=== PATIENT | female | born 1955 ===

== ENCOUNTER 2016-11-24 21:30 | Emergency (ER) | payer OTHER ==
--- NOTE | 2016-11-24 23:58 | ED CLINICAL REPORT ---
Clinical Report - Physicians/Mid Levels Formerly [facility] [address] [place] [address] 11/24/2016 21:31 Patient: CHELLY SOTOMAYOR Time Seen: 2128. Arrived- By ambulance. Historian- patient and EMS personnel. HISTORY OF PRESENT ILLNESS The patient has recovered (improving, but still a little nauseated and shaky). Chief Complaint: NEAR-SYNCOPE. This occurred today about 2 1/2 hours ago. Event was witnessed. At time of event, she was standing and had just stood up. This did not occur when the patient was recumbent or during exertion. The patient had preceding symptoms of light-headedness and nausea. No preceding symptoms of chest pain or abdominal pain. The patient felt faint. No loss of consciousness, incontinence or apnea noted. Did not collapse or lose pulse. Had a single episode. The episode lasted minutes. No injuries noted. Currently has mild nausea (Pt states she is shaky and her muscles feel tense.). Similar symptoms previously: Once, milder. Recent medical care: Not recently seen/assessed. REVIEW OF SYSTEMS No headache, weakness, chest pain, palpitations or diarrhea. No black stools, numbness, bloody stools, fever or sore throat. No difficulty breathing, difficulty with urination, skin rash, enlarged lymph nodes or cough. No joint pain. The patient has had dizziness, moderate, crampy abdominal pain. The pain is described as located in the upper abdomen and vomiting. All systems otherwise negative, except as recorded above. PAST HISTORY Problems: Hypertension. Tetanus Status. Immunizations. LNMP - Last Normal Menstrual Period. Additional Surgeries: Cholecystectomy. Knee Surgery. Rotator Cuff Surgery. Medications: Triamterene Oral. Ranitidine HCl Oral. NexIUM Oral. Losartan Potassium Oral. Gabapentin Oral. Aspirin Oral. Allergies: No Known Drug Allergy. SOCIAL HISTORY Never smoker. No alcohol use or drug use. ADDITIONAL NOTES The nursing notes have been reviewed. PHYSICAL EXAM Vital Signs: 11/24/2016 21:32 BP: 130/87. HR: 90. RR: 20. O2 saturation: 100%. Temp: 97.6 F. Have been reviewed. Appearance: Alert. Anxious. Eyes: Pupils equal, round and reactive to light. No nystagmus. Extraocular movements normal. ENT: Normal ENT inspection. Moist mucous membranes. Neck: Normal inspection. CVS: Normal heart rate and rhythm. Heart sounds normal. Pulses normal. Respiratory: No respiratory distress. Breath sounds normal. Abdomen: Soft and nontender. Obese. Back: Normal inspection. Skin: Skin dry. Normal skin color. No rash. Normal skin turgor. Slightly cool skin. Extremities: Extremities exhibit normal ROM. No lower extremity edema. Neuro: Alert. Oriented X 3. Mood/affect normal. Speech normal. Cranial nerves normal (as tested). No motor deficit. No sensory deficit. LABS, X-RAYS, AND EKG EKG: EKG time: (2136). No acute process. No acute ischemia. Normal EKG. Normal sinus rhythm. Rate: 89. Normal P waves. Normal SAYDA. Normal QRS complex. Normal axis. Normal ST and T waves, QT and QTc. Prior EKG unavailable. The study has been interpreted contemporaneously by me. The study has been independently viewed by me. The EKG appears to be a good tracing. I agree with and confirm the computer reading of the EKG. Rhythm Strip #1: Time: (2140). Rate= 88. Normal sinus rhythm. Regular rhythm. Narrow QRS complexes. No ectopy. Conduction normal. Normal ST segments and T waves. The study was interpreted by me. Laboratory Tests: CBC w Diff: (GERRY: 11/24/2016 21:40) ( MsgRcvd 11/24/2016 21:56) Final results Test Result Flag Units (Reference) WHITE BLOOD COUNT 11.8 H K/uL (4.5-11.5) RED BLOOD COUNT 4.47 M/uL (4.00-5.20) HEMOGLOBIN 13.3 gm/dL (12.0-16.0) HEMATOCRIT 40.0 % (36.0-46.0) MEAN CELL VOLUME 90 fL (80-100) MEAN CORPUSCULAR HGB 30 pg (26-34) MEAN CORPUSCULAR HGB CONC 33 g/dL (31-37) RED CELL DISTRIBUTION WIDTH 12.8 % (11.6-14.8) PLATELET COUNT 193 K/uL (150-400) NEUTROPHIL % 76.8 H % (50-75) LYMPH % 15.2 L % (25-40) MONO % 4.5 % (3-14) EOSINOPHIL % 2.5 % (0-4) BASOPHIL % 1.0 % (0-2) CHEM 13 PANEL: (GERRY: 11/24/2016 21:40) ( MsgRcvd 11/24/2016 22:12) Final results Test Result Flag Units (Reference) GLUCOSE 150 H mg/dL (70-110) BUN 16 mg/dL (7-18) CREATININE 1.1 mg/dL (0.6-1.3) Estimated GFR 53.85 mL/min Estimated GFR- >60 mL/min Note: Persistent reduction over 3 months in eGFR<60 mL/min/1.73 m2 defines CKD. Patients with eGFR values>=60 mL/min/1.73 m2 may also have CKD if evidence ofpersistent proteinuria. Additional information may be foundat www.[email or web address].org. SODIUM 140 mmol/L (136-145) POTASSIUM 3.7 mmol/L (3.5-5.1) CHLORIDE 102 mmol/L (98-107) CARBON DIOXIDE 28 mmol/L (21-32) CALCIUM 9.2 mg/dL (8.5-10.1) TOTAL PROTEIN 7.6 g/dL (6.4-8.2) ALBUMIN 3.8 g/dL (3.3-5.0) BILIRUBIN, TOTAL 0.5 mg/dL (0.0-1.0) ALKALINE PHOSPHATASE 65 U/L (46-116) AST (SGOT) 28 U/L (15-37) ALT (SGPT) 38 U/L (12-78) MAGNESIUM 1.5 L mg/dL (1.8-2.4) CPK 101 U/L (24-260) TROPONIN I <0.05 ng/mL (0.00-1.5) TROPONIN REFERENCE RANGE:<0.1 NEGATIVE0.1-1.5 INDETERMINANT>1.5 POSITIVE . Pulse Oximetry: 11/24/2016 21:32 O2 saturation: 100%. (FIO2 - room air). Interpretation: normal. PROGRESS AND PROCEDURES Course of Care: Pt was given a liter of NS and a dose of Ativan in the ED, after which she did improve significantly. Pt was worked up for her sx, and work-up was unremarkable. No emergent condition identified. We have discussed that if further episodes occur, pt may need to speak with her PCP about wearing a Holter monitor. Patient and family counseled in person regarding the patient's stable condition, test results, diagnosis and need for follow-up. Concerns were addressed. Old medical records reviewed. Disposition: Discharged. Condition: stable and improved. CLINICAL IMPRESSION Near syncope .12 lead EKG performed. Vomiting with nausea. INSTRUCTIONS Drink plenty of fluids. Warnings: SEDATIVE MEDICATION: You were given sedative medication during your visit. Do not drive or operate dangerous machinery for 6 hours. GENERAL WARNINGS: Return or contact your physician immediately if your condition worsens or changes unexpectedly, if not improving as expected, or if other problems arise. Your Current Medications: CONTINUE TAKING THE FOLLOWING MEDICATIONS: Aspirin Oral. Gabapentin Oral. Losartan Potassium Oral. NexIUM Oral. Ranitidine HCl Oral. Triamterene Oral. Prescription Medications: Zofran (orally disintegrating tablets) 4 mg: take 1-2 orally every 6 hours as needed for nausea. Dispense fifteen (15). No refill. Substitution is permissible. Follow-up: Follow up with your doctor in three if not better. Understanding of the discharge instructions verbalized by patient and family. (Electronically signed by Stephanie Murcia MD 11/25/2016 4:25)
--- NOTE | 2016-11-24 23:58 | ED ORDER SUMMARY ---
..... Patient: CHELLY SOTOMAYOR OrderSheet [facility] VisitID: [id number] [address] [place] [address] 61y, F Registration Date/Time: 11/24/2016 ORDER SHEET Weight: 116.5 kg (stated) Allergies: No Known Drug Allergy GENERAL ORDERS: Operations Research Engineer (Continuous) (:11/24/2016 Ester OLSEN) (21:47 SBaldwin) Cardiac Panel Stat (:11/24/2016 Ester OLSEN) (Ack 21:47 SBaldsilvia) (22:00 HSoule) Pulse oximeter (:11/24/2016 Ester OLSEN) (21:47 SBaldwin) EKG - ER Stat (:11/24/2016 Ester OLSEN) (Ack 21:47 Lizzeth) (21:52 HSoule) MEDICATION ORDERS: IV FLUIDS: Zofran IV 8 mg (NOW) (21:43 11/24/2016 HSoule verbal order read back to Ester OLSEN) (21:44 HSoule) IV NS : initial bolus 1000 mL (1000 mL/hr), then none - (NOW) (:45 11/24/2016 Ester OLSEN) (Ack 21:52 HSoule) (22:00 HSoule) Ativan IV 1 mg (HIGH ALERT MEDICATION, NOW) (:11/24/2016 Ester OLSEN) (Ack 21:52 HSoule) (22:01 HSoule) ORDER SHEET NOTES: [Electronically signed by Laura Lerner R.N. (00:15 11/25/2016)] [Electronically signed by Stephanie Murcia MD (04:25 11/25/2016)] [Electronically locked/signed by Laura Lerner R.N. (00:15 11/25/2016)]
--- NOTE | 2016-11-24 23:58 | ED ORDER SUMMARY ---
..... Patient: CHELLY SOTOMAYOR OrderSheet [facility] VisitID: [id number] [address] [place] [address] 61y, F Registration Date/Time: 11/24/2016 ORDER SHEET Weight: 116.5 kg (stated) Allergies: No Known Drug Allergy GENERAL ORDERS: Alarm Installer (Continuous) (:11/24/2016 Ester OLSEN) (21:47 SBaldwin) Cardiac Panel Stat (:11/24/2016 Ester OLSEN) (Ack 21:47 SBaldsilvia) (22:00 HSoule) Pulse oximeter (:11/24/2016 Ester OLSEN) (21:47 SBaldwin) EKG - ER Stat (:11/24/2016 Ester OLSEN) (Ack 21:47 Lizzeth) (21:52 HSoule) MEDICATION ORDERS: IV FLUIDS: Zofran IV 8 mg (NOW) (21:43 11/24/2016 HSoule verbal order read back to Ester OLSEN) (21:44 HSoule) IV NS : initial bolus 1000 mL (1000 mL/hr), then none - (NOW) (:45 11/24/2016 Ester OLSEN) (Ack 21:52 HSoule) (22:00 HSoule) Ativan IV 1 mg (HIGH ALERT MEDICATION, NOW) (:11/24/2016 Esetr OLSEN) (Ack 21:52 HSoule) (22:01 HSoule) ORDER SHEET NOTES: [Electronically signed by Laura Lerner R.N. (00:15 11/25/2016)] [Electronically signed by Stephanie Murcia MD (04:25 11/25/2016)] [Electronically locked/signed by Laura Lerner R.N. (00:15 11/25/2016)]
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
--- NOTE | 2016-11-25 04:25 | ED MED RECONCILIATION SUMMARY ---
Patient: CHELLY SOTOMAYOR Medication Reconciliation Report [facility] VisitID: [id number] [address] [place] [address] 61y, F Registration Date/Time: 11/24/2016 Weight: 116.5 kg Height/Length: 62 in. BMI: 47.0 ALLERGIES: No Known Drug Allergy The patient's Home Medications are listed below: CONTINUE TAKING THE FOLLOWING MEDICATIONS: Aspirin Oral Gabapentin Oral Losartan Potassium Oral NexIUM Oral Ranitidine HCl Oral Triamterene Oral The source(s) of the original Home Medication information: Not obtained. The following Medications were given to the patient in the Emergency Department: Zofran [IVP] IVP 8 mg, administered: 11/24/2016 9:44:00 PM IV NS IV Fluids bolus 0, then 1000 mL/hr, administered: 11/24/2016 10:00:00 PM Ativan [IVP] IVP 1 mg, administered: 11/24/2016 10:01:00 PM The following Medications were prescribed to the patient: Zofran (orally disintegrating tablets) 4 mg: take 1-2 orally every 6 hours as needed for nausea. Dispense fifteen (15). No refill. Substitution is permissible. -- Stephanie Murcia MD
--- NOTE | 2016-11-25 04:25 | ED DISCHARGE INSTRUCTIONS ---
Patient: CHELLY SOTOMAYOR General Instructions [facility] VisitID: [id number] [address] [place] [address] 61y, F Registration Date/Time: 11/24/2016 Near syncope .12 lead EKG performed. Vomiting with nausea. INSTRUCTIONS Drink plenty of fluids. Warnings: SEDATIVE MEDICATION: You were given sedative medication during your visit. Do not drive or operate dangerous machinery for 6 hours. GENERAL WARNINGS: Return or contact your physician immediately if your condition worsens or changes unexpectedly, if not improving as expected, or if other problems arise. Your Current Medications: CONTINUE TAKING THE FOLLOWING MEDICATIONS: Aspirin Oral. Gabapentin Oral. Losartan Potassium Oral. NexIUM Oral. Ranitidine HCl Oral. Triamterene Oral. Prescription Medications: Zofran (orally disintegrating tablets) 4 mg: take 1-2 orally every 6 hours as needed for nausea. Dispense fifteen (15). No refill. Substitution is permissible. Follow-up: Follow up with your doctor in three if not better. Understanding of the discharge instructions verbalized by patient and family. ADDITIONAL INFORMATION Near-Fainting:Uncertain Cause Fainting (syncope) is a temporary loss of consciousness ("passing out"). It occurs when blood flow to the brain is reduced. Near-fainting ("near-syncope") is like fainting, but you do not fully "pass out." The common minor causes of near fainting include sudden fear, pain, emotional stress, overexertion, or quickly standing up after sitting or lying for a long time. The more serious causes for near fainting are due to either a very slow or very fast heart beat, dehydration, anemia, blood loss, problems related to the heart, or taking too much high blood pressure medicine. The exact cause of your episode is not certain. More tests may be required. Therefore, it is important that you follow up with your doctor as advised. Home Care: 1) Rest today. Resume your normal activities as soon as you are feeling back to normal. 2) If you become light-headed or dizzy, lie down right away or sit with your head between your knees. 3) Because we do not know the exact cause of your near fainting spell, another spell could occur without warning. Therefore, do not drive a car or use dangerous equipment. D o not take a bath alone (use a shower instead). Do not swim alone. You can resume these activities when your doctor says that you are no longer in danger of having a near fainting spell. 4) Stay well hydrated by drinking enough fluid each day. Follow Up with your doctor as instructed. Get Prompt Medical Attention if any of the following occur: -- Another fainting spell occurs, and it is not explained by the common causes listed above -- Chest, arm, neck, jaw, back or abdominal pain -- Shortness of breath -- Weakness, tingling or numbness in one side of the face, one arm or leg -- Slurred speech, confusion, trouble walking or seeing -- Seizure -- Blood in vomit, stools (black or red color) -- (In women) unexpected vaginal bleeding Vomiting [6Yr-Adult] Vomiting is a common symptom that may be due to different causes. These include gastroenteritis ("stomach flu"), food poisoning and gastritis. There are other more serious causes of vomiting which may be hard to diagnose early in the illness. Therefore, it is important to watch for the warning signs listed below. The main danger from repeated vomiting is dehydration. This is due to excess loss of water and minerals from the body. When this occurs, body fluids must be replaced. Home Care: If symptoms are severe, rest at home for the next 24 hours. You may use acetaminophen (Tylenol) or ibuprofen (Motrin, Advil) to control fever, unless another medicine was prescribed. [NOTE : If you have chronic liver or kidney disease or ever had a stomach ulcer or GI bleeding, talk with your doctor before using these medicines.] (Aspirin should never be used in anyone under 18 years of age who is ill with a fever. It may cause severe liver damage.) Avoid tobacco and alcohol use, which may worsen your symptoms. If medicines for vomiting were prescribed, take as directed. Once vomiting stops, then follow these guidelines: During The First 12-24 Hours follow the diet below: FRUIT JUICES: Apple, grape juice, clear fruit drinks, and electrolyte replacement drinks. BEVERAGES: Soft drinks without caffeine; mineral water (plain or flavored), decaffeinated tea and coffee. SOUPS: Clear broth, consomm and bouillon DESSERTS: Plain gelatin, popsicles and fruit juice bars. As you feel better, you may add 6-8 ounces of yogurt per day. During The Next 24 Hours you may add the following to the above: Hot cereal, plain toast, bread, rolls, crackers Plain noodles, rice, mashed potatoes, chicken noodle or rice soup Unsweetened canned fruit (avoid pineapple), bananas Limit caffeine and chocolate. No spices or seasonings except salt. During The Next 24 Hours Gradually resume a normal diet, as you feel better and your symptoms lessen. Follow Up with your doctor as advised if you are not improving over the next 2-3 days. Get Prompt Medical Attention if any of the following occur: Constant right-sided lower abdominal pain or increasing general abdominal pain Continued vomiting (unable to keep liquids down) for 24 hours Frequent diarrhea (more than 5 times a day); blood (red or black color) or mucus in diarrhea Reduced urine output or extreme thirst Weakness, dizziness or fainting Unusually drowsy or confused Fever of 100.4F (38C) oral or higher, not better with fever medication Yellow color of the eyes or skin You have been given the following additional information: Near Syncope, Unknown Vomiting (6Y-Adult) (Electronically signed by Stephanie Murcia MD 11/25/2016 4:25)
--- NOTE | 2016-11-25 04:25 | ED MAR SUMMARY ---
..... Medication Administration Record [facility] [address] [place] [address] Patient: CHELLY SOTOMAYOR Visit ID: [id number] 61y, F Weight: 116.5 kg Height/Length: 62 in BMI: 47 ALLERGIES: No Known Drug Allergy Given 21:44 11/24/2016 Miriam Tian, Medication Administered: ZOFRAN [IVP] (ONDANSETRON HCL), Dose: 8 mg IVP over 2 minute(s), Site: #1 right AC. Medication Ordered: Zofran IV 8 mg (NOW). Start 22:00 11/24/2016 Miriam Tian,, Stop 23:14 11/25/2016 Miriam Tian, Medication Administered: IV NS (SALINE), Dose: IV Fluids over 1 hour(s), Rate: 1000 mL/hr, Dispensed: 1000 mL bag, Site: #1 right AC. Medication Ordered: IV NS : initial bolus 1000 mL (1000 mL/hr), then none - (NOW). Given 22:01 11/24/2016 Miriam Tian, Medication Administered: ATIVAN [IVP] (LORAZEPAM), Dose: 1 mg IVP over 1 minute(s), Site: #1 right AC. Medication Ordered: Ativan IV 1 mg (HIGH ALERT MEDICATION, NOW).
--- NOTE | 2016-11-25 04:25 | ED MED RECONCILIATION SUMMARY ---
Patient: CHELLY SOTOMAYOR Medication Reconciliation Report [facility] VisitID: [id number] [address] [place] [address] 61y, F Registration Date/Time: 11/24/2016 Weight: 116.5 kg Height/Length: 62 in. BMI: 47.0 ALLERGIES: No Known Drug Allergy The patient's Home Medications are listed below: CONTINUE TAKING THE FOLLOWING MEDICATIONS: Aspirin Oral Gabapentin Oral Losartan Potassium Oral NexIUM Oral Ranitidine HCl Oral Triamterene Oral The source(s) of the original Home Medication information: Not obtained. The following Medications were given to the patient in the Emergency Department: Zofran [IVP] IVP 8 mg, administered: 11/24/2016 9:44:00 PM IV NS IV Fluids bolus 0, then 1000 mL/hr, administered: 11/24/2016 10:00:00 PM Ativan [IVP] IVP 1 mg, administered: 11/24/2016 10:01:00 PM The following Medications were prescribed to the patient: Zofran (orally disintegrating tablets) 4 mg: take 1-2 orally every 6 hours as needed for nausea. Dispense fifteen (15). No refill. Substitution is permissible. -- Stephanie Murcia MD
--- NOTE | 2016-11-25 04:25 | ED MAR SUMMARY ---
..... Medication Administration Record [facility] [address] [place] [address] Patient: CHELLY SOTOMAYOR Visit ID: [id number] 61y, F Weight: 116.5 kg Height/Length: 62 in BMI: 47 ALLERGIES: No Known Drug Allergy Given 21:44 11/24/2016 Miriam Tian, Medication Administered: ZOFRAN [IVP] (ONDANSETRON HCL), Dose: 8 mg IVP over 2 minute(s), Site: #1 right AC. Medication Ordered: Zofran IV 8 mg (NOW). Start 22:00 11/24/2016 Miriam Tian,, Stop 23:14 11/25/2016 Miriam Tian, Medication Administered: IV NS (SALINE), Dose: IV Fluids over 1 hour(s), Rate: 1000 mL/hr, Dispensed: 1000 mL bag, Site: #1 right AC. Medication Ordered: IV NS : initial bolus 1000 mL (1000 mL/hr), then none - (NOW). Given 22:01 11/24/2016 Miriam Tian, Medication Administered: ATIVAN [IVP] (LORAZEPAM), Dose: 1 mg IVP over 1 minute(s), Site: #1 right AC. Medication Ordered: Ativan IV 1 mg (HIGH ALERT MEDICATION, NOW).
== END 2016-11-25 | disposition home or self-care (01) ==
LOC: ED SRH 21:30
DX: R55 Syncope and collapse (principal); R11.2 Nausea with vomiting, unspecified; I10 Essential (primary) hypertension; Z79.82 Long term (current) use of aspirin; Z79.899 Other long term (current) drug therapy
CPT/HCPCS: 90100; 90616; 92610; 92720; 95059